=== PATIENT | male | born 1940 | race Caucasian/White ===

== ENCOUNTER → 2017-04-20 | Outpatient (CLI) | payer OTHER ==
[~2017-04-20] MED LIST: ACET-24 PO; ASPEC325 PO; CALC-416 PO; CLON1TAB3 PO; IBUP-1451 PO; LEVO25TA5 PO; MULT-506 PO; SIMV20TA2 PO; ULT50X PO
== END | disposition home or self-care (01) ==
LOC: C.CTS 11:45
PROVIDERS: ATTEND Orthopaedic Surgery Sports Medicine
DX: M17.12 Unilateral primary osteoarthritis, left knee (principal)

== ENCOUNTER 2017-06-19 10:35 | Inpatient (IN) | payer OTHER ==
[2017-06-07 09:02] VITALS: BMI 24.0
--- NOTE | 2017-06-07 09:32 | PAT Medication Instructions ---
Service Date Jun 07, 2017. Current Home Medication List Clonazepam (Klonopin), 1 MG PO HS Ibuprofen Tab (Motrin), 800 MG PO PRN PRN for Pain Levothyroxine Sodium (Levothyroxine Sodium), 25 MCG PO HS Multivitamin (Multivitamin), 1 TAB PO QAM Simvastatin (Zocor), 20 MG PO QPM Medication Instructions For Your Scheduled Surgery - Hold the following medications the morning of surgery: Multivitamin (Multivitamin), 1 TAB PO QAM Ibuprofen Tab (Motrin), 800 MG PO PRN PRN for Pain (otherwise okay to continue per surgeon) - Take the following medications as scheduled the night before surgery: Levothyroxine Sodium (Levothyroxine Sodium), 25 MCG PO HS Clonazepam (Klonopin), 1 MG PO HS Simvastatin (Zocor), 20 MG PO QPM Nothing to eat or drink after midnight If you have any questions please call us at [phone] or [phone] or [phone]
--- NOTE | 2017-06-07 10:09 | DIAGNOSTIC IMAGING REPORT ---
CHEST PREADMISSION(PA/LAT) CLINICAL HISTORY: Preoperative chest COMPARISON STUDY: 03/20/2016 FINDINGS: The cardiac and mediastinal contours are normal. There is no evidence of focal pulmonary consolidation. There is no evidence of failure. No pleural effusions are visualized.[ There are old left-sided rib fractures. IMPRESSION: No active disease in the chest. Electronically signed by: Lewis Mukherjee M.D. 06/07/2017 10:08 AM Dictated Date/Time: 06/07/2017 10:07 AM
[2017-06-07 10:27] LABS: PARTIAL THROMBOPLASTIN RATIO 1.1
--- NOTE | 2017-06-14 13:31 | HISTORY & PHYSICAL EXAMINATION ---
DATE OF ADMISSION: 06/19/2017 CHIEF COMPLAINT: Left knee pain. HISTORY OF PRESENT ILLNESS: The patient is a 76-year-old very active gentleman who has had a long history of knee problems. He has a history of a relatively recent hip fracture, now for about 15 months out on this side, treated with an IM nail. The fracture is healed. He continues to be bothered by knee pain and discomfort. He did have a couple episodes of pseudogout, which were treated with aspiration and injection. This gave some temporary relief. The pain has become more disabling. His pain is mostly on the medial side of his knee. Increased with weightbearing. He has his right knee replaced just about a year ago and done well from that. He would like to proceed with left knee replacement. PAST MEDICAL HISTORY: 1. Elevated cholesterol. 2. Pseudogout. 3. Low back pain. 4. Hypothyroidism. PAST SURGICAL HISTORY: Include: 1. Right knee replacement done on 09/05/2016. 2. Left femur fracture IM nailing, 03/11/2016. ALLERGIES: None. CURRENT MEDICINES: 1. Clonazepam 1 mg a day. 2. Simvastatin 20 mg a day. 3. Levothyroxine 25 mcg a day. SOCIAL HISTORY: A 76-year-old male. He is fairly active. He is . FAMILY HISTORY: Noncontributory. REVIEW OF SYSTEMS: Negative for diabetes, neurologic problems, vascular problems, or bleeding disorders. No history of chest pain or shortness of breath. No history of DVT or PE. PHYSICAL EXAMINATION: GENERAL: Reveals a fairly large healthy, pleasant, middle-aged male. He looks to be younger than his stated age. HEENT: Benign. NECK: Supple. No lymphadenopathy. LUNGS: Clear to auscultation. HEART: Regular rate and rhythm. ABDOMEN: Soft, nontender, and nondistended. EXTREMITIES: Grossly neurovascularly intact except as follows: Examination of left knee revealed advanced medial compartment DJD. He has got complete loss of his medial joint space. He has got chondrocalcinosis laterally. He has an IM nail through his femur and seemed distally in the femur. ASSESSMENT: A 76-year-old gentleman status post a right knee replacement 10 months ago and the IM nailing of a left hip fracture about 15 months ago with advanced knee degenerative joint disease. He would like to have his left knee replaced. PLAN: We are going to take him to the operating room and do a left total knee replacement. We will have to use customized instruments due to the IM nailing of his femur. The risks and benefits of left total knee replacement were explained to the patient including, but not limited to DVT, PE, , infection, neurological injury, vascular injury, bleeding problem, pain, limited range of motion, stiffness, failure to relieve symptoms, incomplete relief of symptoms, need for further surgery in the future, fracture, leg length inequality, nerve palsy, persistent pain, etc. The patient understands and desires to proceed. Informed consent was obtained.
[~2017-06-19] VITALS: Ht 185.4 cm; Wt 84.8 kg
[~2017-06-19 10:35] MED LIST changes: -ACET-24 PO; +ACETAMINOPHEN 500 MG TAB PO SCH; -ASPEC325 PO; +BUPIVACAINE 0.5 % 5 MG/1 ML PF 10ML VIAL ONE; +BUPIVACAINE LIPOSOME 266 MG, BUPIVACAINE/EPINEPHRINE INJ 50 ML, SODIUM CHLORIDE 0.9% PF... INFIL SCH; -CALC-416 PO; +CEFAZOLIN 2000 MG/60 ML D5W 60 ML IV SCH; +FAMOTIDINE 20 MG TAB PO SCH; +GABAPENTIN 300 MG CAP PO SCH; +LACTATED RINGER'S 1000ML 1,000 ML IV SCH; +LACTATED RINGER'S 1000ML IV SCH; +METOCLOPRAMIDE HCL 10 MG TAB PO SCH; +ROPIVACAINE 0.5% 5 MG/ML 30 ML VIAL ONE; +SCOPOLAMINE 1.5 MG TDSY TD SCH; +TRANEXAMIC ACID INJ 1,000 MG in SODIUM CHLORIDE 0.9% 100ML 100 ML IV SCH; -ULT50X PO
[2017-06-19] MEDS ORDERED: FENTANYL CITRATE INJ 50 MCG/1 ML 2 ML VIAL ONE (10:50)
[2017-06-19] MEDS ORDERED: BUPIVACAINE/EPINEPHRINE 0.25% 1:200,000 30 ML VIAL ONE (10:50)
[2017-06-19] MEDS ORDERED: BUPIVACAINE LIPOSOME 1/3% 266 MG/20 ML VIAL INFIL ONE (10:50)
[2017-06-19] MEDS ORDERED: MIDAZOLAM HCL 1 MG/ML 2ML VIAL ONE ×2 (10:50→12:52)
[2017-06-19] MEDS ORDERED: BACITRACIN 50000 UNIT VIAL ONE (10:50)
[2017-06-19] MEDS ORDERED: SODIUM CHLORIDE 0.9% PF 50 ML VIAL ONE (10:50)
--- NOTE | 2017-06-19 10:54 | History & Physical Bridge Note ---
H&P Re-Evaluation Bridge Note: I have examined the patient, reviewed the History & Physical and in the interval since the performance of the History & Physical I have noted the following changes of clinical significance: No changes noted
[2017-06-19 11:10] VITALS: BP 154/89; PULSE 68; TEMP 36.4; O2SAT 97; Ht 185.4 cm; Wt 84.8 kg
[2017-06-19] MEDS: LACTATED RINGER'S 1000ML 500 ML IV ONE ×2 (11:25→11:30)
[2017-06-19] MEDS ORDERED: ONDANSETRON INJ 2 MG/ML 2 ML VIAL IV PRN ×2 (12:30→14:45)
[2017-06-19] MEDS ORDERED: EpHEDrine SULFATE INJ 50 MG/ML AMP IV PRN (12:30)
[2017-06-19] MEDS ORDERED: PHENYLEPHRINE 100MCG/ML 5ML SYR IV PRN (12:30)
[2017-06-19] MEDS ORDERED: HYDROmorphone INJ 2 MG/ML SYR/VIAL IV PRN (12:30)
[2017-06-19] MEDS ORDERED: ATROPINE SULFATE 0.1 MG/ML 5ML SYR IV PRN (12:30)
[2017-06-19] MEDS ORDERED: PROPOFOL IV EMULSION 10 MG/ML 20 ML VIAL IV ONE (13:17)
[2017-06-19] MEDS ORDERED: ALUMINUM/MAGNESIUM/SIMETH (MAALOX MAX) 30 ML UDC PO PRN (14:45)
[2017-06-19] MEDS ORDERED: SILVER SULFADIAZINE 1% CR 50 GM JAR EXT PRN (14:45)
[2017-06-19] MEDS ORDERED: ZOLPIDEM TARTRATE 5 MG TAB PO PRN (14:45)
[2017-06-19] MEDS ORDERED: BISACODYL 10 MG SUPP PR PRN (14:45)
[2017-06-19] MEDS ORDERED: MAGNESIUM HYDROXIDE SUSP 30 ML UDC PO PRN (14:45)
[2017-06-19] MEDS ORDERED: HYDROmorphone INJ 0.5 MG/0.5 ML SYR IV PRN (14:45)
[2017-06-19] MEDS ORDERED: METOCLOPRAMIDE HCL INJ 5 MG/ML 2 ML VIAL IV PRN (14:45)
--- NOTE | 2017-06-19 14:45 | [facility] Post Operative Brief Note ---
Immediate Operative Summary Operative Date Jun 19, 2017. Pre-Operative Diagnosis Advanced left knee degenerative joint disease Post-Operative Diagnosis Advanced left knee degenerative joint disease Procedure(s) Performed Left Total Knee Arthroplasty, Cemented Surgeon Dr. Jered Arenas Special Needs Babysitter Surgeon(s) Vishal Jacobsen PA-C Estimated Blood Loss 50ml Findings Left Knee DJD Specimens A: Left knee bone and tissue Drains None Anesthesia Spinal Complication(s) None Disposition Recovery Room / PACU
--- NOTE | 2017-06-19 15:18 | DIAGNOSTIC IMAGING REPORT ---
LEFT KNEE 1 OR 2 VIEWS ROUTINE CLINICAL HISTORY: AP/LATERAL IN PACU LEFT KNEE COMPARISON: None. DISCUSSION: Total joint replacement. Good contact between prosthetic and underlying bone. Intramedullary kenyatta is present within the distal femur. Expected soft tissue postoperative change IMPRESSION: Anatomic alignment status post total left knee replacement The above report was generated using voice recognition software. It may contain grammatical, syntax or spelling errors. Electronically signed by: Gerard Larsen M.D. 06/19/2017 3:17 PM Dictated Date/Time: 06/19/2017 3:16 PM
[2017-06-19 15:30] VITALS: BP 134/79; PULSE 61; TEMP 36.4; O2SAT 99
--- NOTE | 2017-06-19 15:30 | Anesthesiology Progress Note ---
Anesthesia Post Op Note Date & Time Jun 19, 2017 at 15:30 Vital Signs Pain Intensity: 0 Vital Signs Past 12 Hours Date Time Temp Pulse Resp B/P (MAP) Pulse Ox O2 Delivery O2 Flow Rate FiO2 06/19/17 15:20 53 16 121/81 100 Nasal Cannula 2 06/19/17 15:10 36.4 54 14 134/80 100 Nasal Cannula 2 06/19/17 15:00 56 14 130/69 100 Oxymask 5 06/19/17 14:50 36.0 65 14 119/77 100 Oxymask 10 06/19/17 11:10 36.4 68 18 154/89 97 Room Air Notes Mental Status: alert / awake / arousable, participated in evaluation Pt Amnestic to Procedure: Yes Nausea / Vomiting: adequately controlled Pain: adequately controlled Airway Patency, RR, SpO2: stable & adequate BP & HR: stable & adequate Hydration State: stable & adequate Neuraxial Anesthesia: was administered, sensory block is resolving Anesthetic Complications: no major complications apparent
[2017-06-19 15:58] VITALS: BP 131/81; PULSE 56; TEMP 36.4; O2SAT 98
[2017-06-19] MEDS: CHECK SCOPOLAMINE PATCH PLACEMENT SCH ×2 (16:34→23:45)
[2017-06-19] MEDS: D5W AND 1/2NSS + 20MEQ KCL 1,000 ML IV SCH ×2 (16:34→23:45)
[2017-06-19] MEDS: KETOROLAC TROMETHAMINE 15 MG/ML VIAL IV. SCH ×2 (16:54→21:30)
[2017-06-19 17:31] VITALS: BP 134/80; PULSE 60; O2SAT 100
[2017-06-19] MEDS: FERROUS GLUCONATE 324 MG TAB PO SCH (18:16)
--- NOTE | 2017-06-19 18:44 | OPERATIVE REPORT ---
DATE OF OPERATION: 06/19/2017 SURGEON: Dr. Jered Arenas. STOCK SAW OPERATOR: TESS Ramos PREOPERATIVE DIAGNOSIS: Left knee degenerative joint disease. POSTOPERATIVE DIAGNOSIS: Same. PROCEDURE PERFORMED: Left cemented posterior stabilized total knee arthroplasty using the Biomet femoral patient specific alignment technique. COMPLICATIONS: None. ESTIMATED BLOOD LOSS: 50 mL. FLUID REPLACEMENT: 1750 mL of crystalloid fluid replacement. TOURNIQUET TIME: 72 minutes at 300 mmHg. ANESTHESIA: Spinal with adductor canal block. DRAINS: None. SPECIMENS: Left knee sent for pathology. OPERATIVE INDICATIONS: The patient is a 76-year-old very active gentleman who has had a recent host of orthopedic issues. He sustained a left intertrochanteric fracture a little over a year ago and underwent IM nailing. He recovered from this and was having severe bilateral knee pain and degenerative joint disease. He failed conservative treatment and elected to proceed with right total knee replacement. He has recovered from that and has now indicated for left knee replacement. He did have previous femoral IM nailing. We have to use the patient-specific femoral alignment guides. OPERATIVE FINDINGS: Operative findings revealed advanced left knee DJD. He had extensive grade 4 changes in the medial femoral condyle and medial tibial plateau with extensive eburnation in these areas. His lateral compartment was pretty well maintained. He did have a significant flexion contracture about 10 degrees. He had grade 3-4 changes in the patellofemoral joint as well. Moderate size joint effusion. He had a fixed varus deformity to his knee. OPERATIVE IMPLANTS: Operative implants consisted of: 1. A Biomet Vanguard size 75 left posterior stabilized femoral component. 2. A Biomet size 87 tibial tray. 3. A 10 mm posterior stabilized polyethylene insert. 4. A 34 x 8.5 all poly patella. DESCRIPTION OF PROCEDURE: The patient was taken to the operating room, identified and placed on the operating table in supine position. All contact areas were appropriately padded. IV antibiotics were provided by the anesthesia team. A spinal anesthetic and adductor canal block had been provided in the holding area. A Lara catheter was placed in sterile fashion. A left thigh tourniquet was then placed and left lower extremity was then prepped and draped in usual sterile fashion. Left leg was elevated and exsanguinated with Esmarch and tourniquet was placed at 300 mmHg. An anterior approach of the left knee was then performed through a longitudinal incision centered over the patella. Sharp dissection was carried out through the subcutaneous tissues down to the level of the extensor mechanism. A medial parapatellar arthrotomy incision was made. Some subperiosteal dissection was carried out medially. I did do a pretty extensive dissection both posteriorly and medially due to his flexion contracture of his fixed varus deformities. I then proceeded to cutting the distal femur as was the most important and critical portion of this technique based on his intramedullary hardware. The patient's femoral alignment jig was then placed in the anterior aspect of the femur. We made some slight adjustments and it was pinned distally and then pinned proximally. The pins were then removed distally and the distal femoral cut was made. I did adjust this to take an additional 4 mm of bone off the distal femur as the initial cuts went down to the intercondylar notch area and any significant flexion contracture preoperatively. Once this was complete, I then proceeded with the tibial cut. The ACL and PCL were then released from the distal femur. The tibia subluxated anteriorly. I did attempt to use the tibial alignment jig, but it did not sit well evenly or equally on the tibia to make a predictable cut and therefore, we used extramedullary guide. The extramedullary guide was placed in the anterior face of the tibia and adjusted 16 mm medially. The proximal tibial cut was made essentially flush with the very most posterior medial incision area of the tibial plateau. Some osteophytes were taken off medial and posteromedially. Tibia was sized to a size 87. Attention was drawn back to the distal femur. The distal femur was then sized and sized to a size 75. The AP cutting block was then pinned and the previous holes placed by the alignment technique. Posterior cut and posterior chamfer cuts were made. Box cutting guide was placed and adjusted slight lateral and the box cut was made. The knee was then flexed. The remnants of the medial and lateral menisci were excised. The osteophytes were taken off the posterior aspect of the femur. Trial femoral component was placed. The tibial tray was then pinned in maximum external rotation and drill and stem punch were used to create defect in proximal tibia for the tibial tray. The knee was then trialed and a 10 mm insert fit most appropriately. Attention was drawn to the patella. The patella was cleaned of all soft tissues. Patellar thickness measured 25 mm and was cut down to 15. It was sized to a size 34 patella. Lug holes were drilled for a 34 patella. Lateral osteophyte was removed. Patella button was placed. Knee was taken through range of motion and the patella tracked nicely with no thumbs test. Attention was then drawn toward placement of permanent component. The wound was irrigated with copious amounts of pulsatile lavage solution. A double batch of Palacos G cement was mixed. A left size 75 posterior stabilized femoral component, a size 87 tibial tray, a 10 mm posterior stabilized polyethylene insert, and a 34 x 8.5 all poly patella were then cemented in place. The knee was brought out into full extension until cement hardened. A final cement check was then performed. Pericapsular tissues were injected with a total of 100 mL with a combination of 20 mL of Exparel, 30 mL of normal saline, 50 mL of 0.25% Marcaine with epinephrine. The patient did receive 1 gram of tranexamic acid. The tourniquet was let down for a final tourniquet time of 72 minutes. Hemostasis was assured using electrocautery. The extensor mechanism was then closed with a combination of #1 PDS suture and #1 Vicryl suture in a [id number] fashion. Extensor mechanism was checked and found to be intact. Subcutaneous tissue was closed with 2-0 Dexon suture in a buried interrupted fashion. The skin was closed with skin lay. Leg was then cleaned and dried and a sterile dressing with Xeroform, 4 x 4, sterile cast padding and an Ronn bandage was applied. The patient was transferred to the recovery room in stable condition. The patient tolerated the procedure well with no complications. All needle and sponge counts were correct at the end of the operation. I attest to the content of the Intraoperative Record and any orders documented therein. Any exception s are noted below.
[2017-06-19 19:56] VITALS: BP 150/82; PULSE 76; TEMP 36.5; O2SAT 99
[2017-06-19] MEDS: CEFAZOLIN IV 2,000 MG in DEXTROSE 5% 50ML 50 ML IV SCH (20:04)
[2017-06-19] MEDS: CLONAZEPAM 1 MG TAB PO SCH (20:39)
[2017-06-19] MEDS: LEVOTHYROXINE 25 MCG TAB PO SCH (20:39)
[2017-06-19] MEDS: ASPIRIN 325 MG ECTAB PO SCH (20:39)
[2017-06-19] MEDS: SIMVASTATIN 20 MG TAB PO SCH (20:39)
[2017-06-19] MEDS: DOCUSATE SODIUM 100 MG CAP PO SCH (20:40)
[2017-06-19] MEDS: SENNA 8.6 MG TAB PO SCH (20:40)
[2017-06-19] MEDS ORDERED: TRANEXAMIC ACID INJ 1,000 MG in SODIUM CHLORIDE 0.9% 100ML 100 ML IV ONE (21:00)
[2017-06-19] MEDS: ACETAMINOPHEN 500 MG TAB PO SCH (21:30)
[2017-06-19 23:06] VITALS: BP 146/78; PULSE 60; TEMP 36.6; O2SAT 97
[2017-06-20 02:55] VITALS: BP 129/73; PULSE 61; TEMP 36.4; O2SAT 98
[2017-06-20] MEDS: CEFAZOLIN IV 2,000 MG in DEXTROSE 5% 50ML 50 ML IV SCH (04:14)
[2017-06-20] MEDS: KETOROLAC TROMETHAMINE 15 MG/ML VIAL IV. SCH ×4 (04:15→22:09)
[2017-06-20] MEDS: ACETAMINOPHEN 500 MG TAB PO SCH ×3 (05:46→22:08)
[2017-06-20 05:53] LABS: HEMATOCRIT 37.3 % (42-52); MEAN CELL VOLUME 97.4 fL (80-100); MEAN CORPUSCULAR HEMOGLOBIN 34.2 pg (25-34); MEAN CORPUSCULAR HGB CONC 35.1 g/dl (32-36); MEAN PLATELET VOLUME 9.9 fL (7.4-10.4); PLATELET COUNT 130 K/uL (130-400); RED BLOOD COUNT 3.83 M/uL (4.7-6.1); WHITE BLOOD COUNT 8.83 K/uL (4.8-10.8)
[2017-06-20 06:26] LABS: BUN/CREATININE RATIO 17.1 (10-20); CALCIUM 8.1 mg/dl (8.5-10.1); CREATININE 1.1 mg/dl (0.60-1.40); POTASSIUM 4.3 mmol/L (3.5-5.1)
[2017-06-20 07:16] VITALS: BP 122/77; PULSE 63; TEMP 36.6; O2SAT 100
[2017-06-20] MEDS ORDERED: ASPEC325 PO (07:56)
[2017-06-20] MEDS ORDERED: ACET-24 PO (07:56)
[2017-06-20] MEDS ORDERED: ULT50X PO (07:56)
--- NOTE | 2017-06-20 07:58 | Discharge Instructions ---
Discharge Instructions Date of Service Jun 20, 2017. Admission Reason for Admission: Left Knee Degenerative Joint Disease Discharge Discharge Diagnosis / Problem: Left Knee REplacement Discharge Goals Goal(s): Decrease discomfort, Improve function, Increase independence, Improve disease control, Therapeutic intervention Activity Recommendations Activity Limitations: per Instructions/Follow-up section Weightbearing Status: Left weightbearing . Instructions / Follow-Up Instructions / Follow-Up ACTIVITY RECOMMENDATIONS: Physical Therapy: * You will go to physical therapy three times each week for four to six weeks after your surgery in order to regain your knee range of motion and to retrain your knee to work properly. * It is just as important to make sure you are getting your knee perfectly straight as it is to regain your knee bend. * Taking a pain pill an hour before therapy can help you have a more productive and comfortable therapy session. Home Exercise: * You were shown a series of exercises (heel props, heel slides, etc.) in the hospital. Do these exercises three to four times each day including the exercises you were shown in physical therapy. Walking: * Get up and walk several times each day. For the first four weeks, try not to stand or walk for more than one hour at a time. If you do stand or walk for more than one hour, you will not hurt anything, but your knee and leg will likely swell. * As you feel comfortable, you may change from the walker or crutches to a cane and then to independent walking. MEDICATIONS: New Medicine: * You will likely be taking one or more of these medications: 1. Tramadol - A quick and shorter-acting pain medication. Take one to two tablets every four to six hours to lessen your pain. 2. Aspirin - Thins your blood to lessen the chance of forming a blood clot. * The most common side effects of pain medicine and iron are nausea and constipation. If nausea or constipation is too much of a problem or if you have any questions about your new medicines or doses, call [facility] at . We will try to help you manage these issues. VERY IMPORTANT TO READ AND REVIEW" Pain: * The immediate post-operative period after knee replacement surgery is often quite painful. * You are given a prescription for pain medicine. You should take it, as directed, when you need it, especially before physical therapy and before going to bed. Pain that interferes with sleep is very common and can last several months. * You will likely need pain medicine for the first four to six weeks. It will not stop all of the pain. The pain will lessen and as you feel better, you may change to milder pain medicine such as Tylenol. * The most common side effects of pain medicine are nausea and constipation, so don't take more than you need. SPECIAL CARE INSTRUCTIONS: TEDs/Elastic Stockings: * The white elastic stockings help limit swelling and prevent blood clots from forming in your legs. The more you wear them, the more they work. * Wear them for six weeks after knee replacement surgery and four weeks after partial knee replacement. Prevention of Infection: * Take antibiotics one hour before any dental cleaning, dental work, urological procedure, gastrointestinal procedure or any invasive surgery in order to prevent your new joint from getting infected. * You may get the antibiotics from the doctor performing the procedure or you may call our office at before and we will call in a prescription to the pharmacy of your choice. Things to Watch For: * Drainage from the incision site that occurs more than one week after your surgery. * Severely increased knee/leg pain or swelling. * Increased redness at the incision site. * Fever above 102 degrees Fahrenheit. * Unusual chest pain or shortness of breath. * Unusual pain or burning with urination. Call [facility] at with any of the above problems or if you have any questions about your medicines or recovery. FOLLOW UP VISIT: Make an appointment to see your doctor for approximately two weeks after surgery for a progress check and staple removal by calling the office at . Current Hospital Diet Patient's current hospital diet: Regular Diet Discharge Diet Recommended Diet: Regular Diet Procedures Procedures Performed: Left Total Knee Arthroplasty, Cemented Pending Studies Studies pending at discharge: no Medical Emergencies . Who to Call and When: Medical Emergencies: If at any time you feel your situation is an emergency, please call [phone] immediately. . Non-Emergent Contact Non-Emergency issues call your: Surgeon . "Provider Documentation" section prepared by Jered Arenas. . VTE Core Measure Inpt VTE Proph given/why not?: Other Anticoagulation, T.E.D. Stockings, SCD's
[2017-06-20] MEDS: D5W AND 1/2NSS + 20MEQ KCL 1,000 ML IV SCH (08:45)
[2017-06-20] MEDS: ASPIRIN 325 MG ECTAB PO SCH ×2 (08:46→22:08)
[2017-06-20] MEDS: DOCUSATE SODIUM 100 MG CAP PO SCH ×2 (08:47→22:08)
[2017-06-20] MEDS: MULTIVITAMIN TAB PO SCH (08:47)
[2017-06-20] MEDS: FERROUS GLUCONATE 324 MG TAB PO SCH ×3 (08:47→17:24)
[2017-06-20] MEDS: CHECK SCOPOLAMINE PATCH PLACEMENT SCH ×2 (08:47→16:06)
[2017-06-20] MEDS: PANTOprazole SOD 40 MG TAB PO SCH (08:48)
[2017-06-20] MEDS ORDERED: MULTIVITAMIN TAB PO SCH (09:00)
[2017-06-20] MEDS: TRAMADOL HCL 50 MG TAB PO PRN ×2 (09:46→23:46)
--- NOTE | 2017-06-20 10:07 | PROGRESS NOTE ---
DATE: 06/20/2017 SUBJECTIVE: 76-year-old gentleman postop day 1 from left knee replacement. He is doing well. Not really having much pain at all. No chest pain or shortness of breath. Not feeling dizzy or lightheaded. OBJECTIVE: VITAL SIGNS: Temperature 36.6. Vital signs stable. PHYSICAL EXAMINATION: GENERAL: A healthy, pleasant elderly male. He is sitting up in his bedside chair and looks quite comfortable. LUNGS: Clear to auscultation. HEART: Regular rate and rhythm. ABDOMEN: Soft, nontender, nondistended. EXTREMITIES: Grossly neurovascularly intact except as follows: Examination of the left leg reveals the dressing to be clean, dry, and intact. He can dorsiflex and plantarflex his foot appropriately. He is neurologically intact. LABORATORY DATA: Hemoglobin 13.1, hematocrit 37.3. Electrolytes are stable. ASSESSMENT: 76-year-old gentleman postop day 1 from left knee replacement, doing pretty well. Pain is controlled. He is neurologically intact. PLAN: 1. DVT prophylaxis including thigh-high TEDs, SCDs, and aspirin twice a day. 2. PT/OT. Weightbearing as tolerated. Left total knee protocol. 3. Pain control. Doing well with current pain regimen. 4. Disposition: He is planning to be discharged to home with some home health once adequately recovered.
--- NOTE | 2017-06-20 10:13 | Anesthesiology Progress Note ---
Anesthesia Post Op Note Date & Time Jun 20, 2017 at 10:12 Vital Signs Pain Intensity: 2.0 Vital Signs Past 12 Hours Date Time Temp Pulse Resp B/P (MAP) Pulse Ox O2 Delivery O2 Flow Rate FiO2 06/20/17 07:35 Room Air 06/20/17 07:16 36.6 63 19 122/77 (92) 100 Room Air 06/20/17 02:55 36.4 61 17 129/73 (91) 98 Room Air 06/19/17 23:40 Room Air 06/19/17 23:06 36.6 60 17 146/78 (100) 97 Room Air Notes Mental Status: alert / awake / arousable, participated in evaluation Pt Amnestic to Procedure: Yes Nausea / Vomiting: adequately controlled Pain: adequately controlled Airway Patency, RR, SpO2: stable & adequate BP & HR: stable & adequate Hydration State: stable & adequate Neuraxial Anesthesia: was administered, sensory block resolved Anesthetic Complications: no major complications apparent
[2017-06-20 15:31] VITALS: BP 131/74; PULSE 64; TEMP 36.5; O2SAT 99
[2017-06-20] MEDS: SIMVASTATIN 20 MG TAB PO SCH (22:07)
[2017-06-20] MEDS: SENNA 8.6 MG TAB PO SCH (22:08)
[2017-06-20] MEDS: CLONAZEPAM 1 MG TAB PO SCH (22:08)
[2017-06-20] MEDS: LEVOTHYROXINE 25 MCG TAB PO SCH (22:08)
[2017-06-20 23:15] VITALS: BP 126/68; PULSE 69; TEMP 36.9; O2SAT 97
[2017-06-21] MEDS: KETOROLAC TROMETHAMINE 15 MG/ML VIAL IV. SCH ×2 (04:11→11:03)
[2017-06-21] MEDS: ACETAMINOPHEN 500 MG TAB PO SCH (05:36)
[2017-06-21 07:26] VITALS: BP 133/74; PULSE 66; TEMP 36.5; O2SAT 96
--- NOTE | 2017-06-21 07:51 | PROGRESS NOTE ---
DATE: 06/21/2017 SUBJECTIVE: 76-year-old gentleman postop day 2 from a left knee replacement. He is doing well. Pain is controlled. Denies any chest pain or shortness of breath. Not feeling dizzy or lightheaded. OBJECTIVE: VITAL SIGNS: Temperature is 36.5. Vital signs stable. PHYSICAL EXAMINATION: GENERAL: Reveals a healthy, pleasant, middle-aged male. He was awake, alert and up and sitting out of bed this morning. EXTREMITIES: Examination of the left leg reveals the dressing to be clean, dry and intact. Fairly minimal swelling. No drainage. His calf is soft and supple. Her is neurologically intact. ASSESSMENT: 76-year-old gentleman postop day 2 from a left knee replacement, doing well. Pain is controlled. PLAN: 1. DVT prophylaxis including thigh-high TEDs, SCDs, and aspirin twice a day. 2. PT/OT. Weightbearing as tolerated. Left total knee protocol. 3. Pain control. Doing well with current pain management. 4. Disposition: Plan to discharge to home with some home health later today.
[2017-06-21] MEDS: DOCUSATE SODIUM 100 MG CAP PO SCH (08:20)
[2017-06-21] MEDS: ASPIRIN 325 MG ECTAB PO SCH (08:20)
[2017-06-21] MEDS: MULTIVITAMIN TAB PO SCH (08:21)
[2017-06-21] MEDS: FERROUS GLUCONATE 324 MG TAB PO SCH (08:21)
[2017-06-21] MEDS: PANTOprazole SOD 40 MG TAB PO SCH (08:21)
[2017-06-21] MEDS: TRAMADOL HCL 50 MG TAB PO PRN (08:25)
[2017-06-21 09:07] VITALS: BP 133/74; PULSE 66; TEMP 36.5; O2SAT 96
--- NOTE | 2017-06-28 00:08 | DISCHARGE SUMMARY ---
ADMITTING PHYSICIAN AND SURGEON: Dr. Arenas. ADMITTING DIAGNOSIS: Left knee degenerative joint disease. SURGERY PERFORMED: Left total knee arthroplasty. SECONDARY DIAGNOSES: Elevated cholesterol, pseudogout, low back pain, hypothyroidism. CONSULTS: None obtained. HISTORY AND PHYSICAL EXAMINATION: Well documented in the patient's chart. HOSPITAL COURSE: The patient was admitted on 06/19/2017, underwent total knee arthroplasty, tolerated the procedure well, there were no complications. He was transferred to the PACU postoperatively and later to the orthopedic floor for further care. He was given Ancef for antibiotic prophylaxis, SINGH stockings, SCDs and aspirin for DVT prophylaxis. His hemoglobin, hematocrit and vital signs were monitored during hospital stay and remained stable. He did not require any blood transfusions. There were no complications during his hospital stay. By postoperative day 2, he was tolerating a general diet. Pain was controlled with oral pain medicine. He was participating in physical therapy, had no signs or symptoms of deep vein thrombosis. On postop day 2, he was discharged home and set up with home health services. He was given printed discharge instructions including new prescriptions for extra strength Tylenol, aspirin 325 mg b.i.d., Tramadol, continue his home medicines. Continue physical therapy, weightbearing as tolerated, SINGH stockings. Follow up in 10-12 days or sooner if there are any problems or concerns.
== END 2017-06-21 11:25 | disposition home health service (06) | DRG 470 ==
LOC: C.ACU 10:35 → C.3E 11:00 → ENRESERV 15:16
PROVIDERS: ADMIT Orthopaedic Surgery Sports Medicine; ATTEND Orthopaedic Surgery Sports Medicine
PROC: 0SRD0J9 Replacement of Left Knee Joint with Synthetic Substitute, Cemented, Open Approach (ICD-10-PCS; principal; 2017-06-19 13:00)
DX: M17.12 Unilateral primary osteoarthritis, left knee (principal); E03.9 Hypothyroidism, unspecified; M54.5 Low back pain; E78.00 Pure hypercholesterolemia, unspecified; M11.20 Other chondrocalcinosis, unspecified site; M21.162 Varus deformity, not elsewhere classified, left knee; M25.462 Effusion, left knee; M24.562 Contracture, left knee; Z87.891 Personal history of nicotine dependence; Z96.651 Presence of right artificial knee joint; Z79.899 Other long term (current) drug therapy; Z79.1 Long term (current) use of non-steroidal anti-inflammatories (NSAID)

== ENCOUNTER → 2017-07-25 | Outpatient (CLI) | payer OTHER ==
[~2017-07-25] MED LIST changes: +ACET-24 PO; -ACETAMINOPHEN 500 MG TAB PO SCH; +ASPEC325 PO; -BUPIVACAINE 0.5 % 5 MG/1 ML PF 10ML VIAL ONE; -BUPIVACAINE LIPOSOME 266 MG, BUPIVACAINE/EPINEPHRINE INJ 50 ML, SODIUM CHLORIDE 0.9% PF... INFIL SCH; -CEFAZOLIN 2000 MG/60 ML D5W 60 ML IV SCH; -FAMOTIDINE 20 MG TAB PO SCH; -GABAPENTIN 300 MG CAP PO SCH; -LACTATED RINGER'S 1000ML 1,000 ML IV SCH; -LACTATED RINGER'S 1000ML IV SCH; -METOCLOPRAMIDE HCL 10 MG TAB PO SCH; -ROPIVACAINE 0.5% 5 MG/ML 30 ML VIAL ONE; -SCOPOLAMINE 1.5 MG TDSY TD SCH; -TRANEXAMIC ACID INJ 1,000 MG in SODIUM CHLORIDE 0.9% 100ML 100 ML IV SCH; +ULT50X PO
== END | disposition home or self-care (01) ==
LOC: C.PATHSPEC 17:18
PROVIDERS: ATTEND Urology
DX: N40.1 Benign prostatic hyperplasia with lower urinary tract symptoms (principal)